=== PATIENT | male | born 1980 | race Caucasian/White ===

== ENCOUNTER 2020-02-01 08:21 | Outpatient (CLI) | payer OTHER, SELFPAY ==
[2020-02-02 01:58] LABS: COVID-19 RT-PCR UVMMC Result Negative (Negative)
== END 2020-02-01 08:41 ==
PROVIDERS: PCP Internal Medicine; Visit Provider Family Medicine
DX: Z20.828 Contact with and (suspected) exposure to other viral communicable diseases (principal)
CPT/HCPCS: U0003

== ENCOUNTER 2024-11-12 10:23 | Outpatient (REF) | payer BC, SELFPAY ==
[2024-11-13 10:36] LABS: Lyme Ab w Rflx to Lyme Confirm Negative (Negative)
[2024-11-15 00:41] LABS: Anaplasma phagocytophilum Negative (Negative); B. miyamotoi PCR Negative (Negative); Babesia divergens/MO-1 Negative (Negative); Babesia duncani Negative (Negative); Babesia microti Negative (Negative); Ehrlichia chaffeensis Negative (Negative); Ehrlichia ewingii/canis Negative (Negative); Ehrlichia muris eauclairensis Negative (Negative)
== END 2024-11-12 10:24 | disposition home or self-care (01) ==
LOC: NCHCN 10:23
PROVIDERS: PCP Family Medicine; Visit Provider Family Medicine
DX: M54.50 Low back pain, unspecified (principal)
CPT/HCPCS: 87798; 86618